=== PATIENT | male | born 1970 | race Caucasian/White ===

== ENCOUNTER 2020-06-23 15:06 | Emergency (ER) | payer OTHER ==
[2020-06-23] MEDS ORDERED: DIPHTH,PERTUSS(ACELL),TET 0.5 ML DISP.SYRIN IM ONE ×2 (15:13→15:56)
[2020-06-23 15:14] VITALS: BMI 33.9
[2020-06-23] MEDS ORDERED: LIDOCAINE HCL 1%, 10 MG/ML (50 mL VIAL) INF ONE (15:15)
[2020-06-23] MEDS ORDERED: LIDOCAINE HCL 1%, 10 MG/ML (20ML VIAL) ONE (15:55)
[2020-06-23] MEDS ORDERED: CEPHALEXIN MONOHYDRATE 500 MG CAPSULE (UD) PO ONE (16:12)
[2020-06-23] MEDS ORDERED: CEPHALEXIN MONOHYDRATE 500 MG CAPSULE (UD) ONE (16:19)
[2020-06-23] MEDS ORDERED: CEFAZOLIN 1 GM in DEXTROSE 5%-WATER - 50 ML IVPB ONE (16:45)
[2020-06-23] MEDS ORDERED: CEFAZOLIN 1 GM/D5W 1 GM/50 ML BAG ONE (17:16)
[2020-06-23 18:10] VITALS: BP 143/83; PULSE 86; TEMP 99
== END 2020-06-23 18:00 | disposition home or self-care (01) ==
LOC: JER 15:06
PROC: 3E03329 Introduction of Other Anti-infective into Peripheral Vein, Percutaneous Approach (ICD-10-PCS; principal; 2020-06-23)
PROC: 3E0234Z Introduction of Serum, Toxoid and Vaccine into Muscle, Percutaneous Approach (ICD-10-PCS; 2020-06-23)
DX: S61.111A Laceration without foreign body of right thumb with damage to nail, initial encounter (principal); S62.524B Nondisplaced fracture of distal phalanx of right thumb, initial encounter for open fracture
CPT/HCPCS: 73130-TC-RT-FY; 90715; 99284-25

== ENCOUNTER 2024-03-20 10:26 | Emergency (ER) | payer OTHER ==
[2024-03-20 10:35] VITALS: BP 140/91; PULSE 71; RESP 20; TEMP 98.4; BMI 35.2
[2024-03-20] MEDS ORDERED: BACITRACIN ZINC 15 GM TUBE TOPICAL OINTMENT ONE (11:20)
[2024-03-20] MEDS: BACITRACIN ZINC 15 GM TUBE TOPICAL OINTMENT TP ONE (11:20)
== END 2024-03-20 11:56 | disposition home or self-care (01) ==
LOC: JERFT 10:26
DX: Z48.02 Encounter for removal of sutures (principal)
CPT/HCPCS: 99283-25